=== PATIENT | female | born 1995 | race Caucasian/White ===

== ENCOUNTER 2016-04-18 14:10 | Emergency (ER) | payer BC ==
[2016-04-18 15:31] VITALS: BP 128/71
--- NOTE | 2016-04-18 15:42 | UC ---
General HPI - HPI Summary HPI Summary: complaint of rash that started yesterday started on her thighs and arms then today it has spread to her back and trunk rash is extremely itchy legs and arms are worse denies any new foods, soaps , detergents , medications took benadryl and calamine with some itching intermittent sore throat and headache for 5 days denies fever but has felt chills - History of Current Complaint Chief Complaint: [place] Stated Complaint: RASH Time Seen by Provider: 04/18/16 15:34 Hx Obtained From: Patient - Allergy/Home Medications Allergies/Adverse Reactions: Allergies Allergy/AdvReac Type Severity Reaction Status Date / Time Cefaclor [From [facility]] Allergy Airway Verified 04/18/16 15:31 Obstruction Home Medications: Home Medications Calamine LOTION* 1 applic .SEE ORDER DAILY PRN 04/18/16 [History Confirmed 04/18] Norgestimate-Ethinyl Estradiol [Sprintec 28 0.25-35 mg-Mcg] 1 tab PO DAILY 04/18 [History Confirmed 04/18/16] diPHENhydraMINE PO* [Benadryl PO 25 MG TAB*] 25 mg PO Q6H PRN 04/18/16 [History Confirmed 04/18/16] PMH/Surg Hx/FS Hx/Imm Hx Previously Healthy: Yes Respiratory History Of: Reports: Asthma - CHILDHOOD - Surgical History Surgical History: Yes Surgery Procedure, Year, and Place: EAR TUBES - Family History Known Family History: Positive: Diabetes - mother Negative: Cardiac Disease, Hypertension - Social History Occupation: Student Lives: With Family Alcohol Use: Occasionally Substance Use Type: None Smoking Status (MU): Never Smoked Tobacco Household Exposure Type: Cigarettes Review of Systems Constitutional: Negative Skin: Rash Eyes: Negative ENT: Sore Throat Respiratory: Negative Cardiovascular: Negative Gastrointestinal: Negative Genitourinary: Negative Motor: Negative Neurovascular: Negative Musculoskeletal: Negative Neurological: Negative Psychological: Negative All Other Systems Reviewed And Are Negative: Yes Physical Exam Triage Information Reviewed: Yes Appearance: No Pain Distress, Well-Nourished Vital Signs: Initial Vital Signs Pulse 74 04/18/16 15:25 Resp 18 04/18/16 15:25 BP 128/71 04/18/16 15:25 Pulse Ox 100 04/18/16 15:25 Vital Signs Reviewed: Yes Eyes: Positive: Conjunctiva Clear ENT: Positive: Pharyngeal erythema, TMs normal, Tonsillar swelling, Tonsillar exudate, Other: - tongue erythemaotus. Negative: TM bulging, TM red Dental: Positive: Cervical Lymphadenopathy Respiratory: Positive: Lungs clear, Normal breath sounds, No respiratory distress Cardiovascular: Positive: RRR, No Murmur, Pulses Normal Abdomen Description: Positive: Nontender, Soft Bowel Sounds: Positive: Present Musculoskeletal: Positive: No Edema Neurological: Positive: Alert Psychological Exam: Normal Skin: Positive: rashes - erythematous papular rash scattered on legs , arms and trunk Course/Dx - Course Course Of Treatment: exam completed. appears to be scarlet fever- enlarged tonsils, swollen lymph nodes,chills, lack of cough. will send throat culture- treat for strep d/t risk of not getting treatment - Differential Dx - Multi-Symptom Differential Diagnoses: Other - scarlet fever, mono, cintact dermatitis, cellulitis, hives Provider Diagnoses: strep infection Discharge - Discharge Plan Condition: Stable Disposition: HOME Prescriptions: Penicillin VK TAB 500 MG(NF) [Penicillin VK 500 mg Tab(NF)] 500 mg PO TID #30 tab Patient Education Materials: Scarlet Fever (ED), Strep Throat (ED) Referrals: Carmen Perry [Primary Care Provider] - Additional Instructions: Start antibiotic as directed Increase fluids and rest Take acetaminophen or ibuprofen for fever or pain Please review your discharge instructions. If your symptoms do not improve please call your primary care provider or return to urgent care
[2016-04-19 11:13] LABS: EBV Response NO
[2016-04-19 11:45] LABS: Manual Entry Verification HAN0055; Mono Internal Control QC Line Present
== END 2016-04-18 16:45 | disposition home or self-care (01) ==
LOC: UCCORT 14:10
DX: A49.1 Streptococcal infection, unspecified site (principal); R21 Rash and other nonspecific skin eruption; B27.90 Infectious mononucleosis, unspecified without complication; Z88.1 Allergy status to other antibiotic agents; Z77.22 Contact with and (suspected) exposure to environmental tobacco smoke (acute) (chronic)
CPT/HCPCS: 36415; 86308; 87070; 87651; 99202; G0463

== ENCOUNTER 2018-04-22 14:36 | Emergency (ER) | payer BC ==
[2018-04-22 15:11] VITALS: BP 114/78
--- NOTE | 2018-04-22 15:12 | UC ---
Ear Complaint HPI - HPI Summary HPI Summary: 23-year-old female presents with one-week history of bilateral intermittent ear pain. States pain worsens at times with chewing. Has taken ibuprofen with some relief. States she is also noted swollen lymph node to the right side of her neck. Denies fever, chills, tinnitus, vertigo, ear drainage, hearing loss, nasal congestion, runny nose, sore throat, or cough. - History of Current Complaint Stated Complaint: EAR PAIN Time Seen by Provider: 04/22/18 15:00 Hx Obtained From: Patient Hx Last Menstrual Period: 25 DAYS AGO - Allergies/Home Medications Allergies/Adverse Reactions: Allergies Allergy/AdvReac Type Severity Reaction Status Date / Time cefaclor [From [facility]] Allergy Airway Verified 04/22/18 15:08 Obstruction PMH/Surg Hx/FS Hx/Imm Hx Previously Healthy: Yes - Denies significant PMH - Surgical History Surgical History: Yes Surgery Procedure, Year, and Place: EAR TUBES - Family History Known Family History: Positive: Diabetes - mother - Social History Occupation: Employed Full-time Lives: With Family Alcohol Use: Occasionally Substance Use Type: None Smoking Status (MU): Never Smoked Tobacco Household Exposure Type: Cigarettes Review of Systems All Other Systems Reviewed And Are Negative: Yes Constitutional: Negative: Fever, Chills Skin: Negative: Rash Eyes: Negative: Drainage, Eye Redness ENT: Positive: Ear Ache. Negative: Sore Throat, Nasal Discharge, Sinus Congestion, Sinus Pain/Tenderness Respiratory: Negative: Shortness Of Breath, Cough Cardiovascular: Negative: Palpitations, Chest Pain Gastrointestinal: Negative: Abdominal Pain, Vomiting, Diarrhea, Nausea Genitourinary: Positive: Negative Musculoskeletal: Positive: Negative Neurological: Positive: Negative Is Patient Immunocompromised?: No Physical Exam - Summary Physical Exam Summary: GENERAL APPEARANCE: Well developed, well nourished, alert and cooperative, and appears to be in no acute distress. EYES: Conjunctiva clear. No drainage. Vision is grossly intact. EARS: External auditory canals and tympanic membranes clear, mild scarring, hearing grossly intact. NOSE: No nasal discharge. THROAT: Pharynx normal. No tonsilar inflammation, swelling, exudate, or lesions. Uvula midline. Oral cavity normal. Teeth and gingiva in good general condition. No TMJ tenderness. NECK: Neck supple. Single non-tender enlarged right tonsilar lymph node. CARDIAC: Normal S1 and S2. No S3, S4 or murmurs. Rhythm is regular. There is no peripheral edema, cyanosis or pallor. Extremities are warm and well perfused. Capillary refill is less than 2 seconds. Peripheral pulses intact. LUNGS: Clear to auscultation without rales, rhonchi, wheezing or diminished breath sounds. ABDOMEN: Positive bowel sounds. Soft, nondistended, nontender. No guarding or rebound. No masses or hepatosplenomegally. MUSKULOSKELETAL: ROM intact to all extremities. No joint erythema or tenderness. Normal muscular development. Normal gait. SKIN: Skin normal color, texture and turgor with no lesions or eruptions. Triage Information Reviewed: Yes Vital Signs Reviewed: Yes Ear Complaint Course/Dx - Course Course Of Treatment: 23-year-old female presents with one-week history of bilateral intermittent ear pain. States pain worsens at times with chewing. Has taken ibuprofen with some relief. States she is also noted swollen lymph node to the right side of her neck. Denies fever, chills, tinnitus, vertigo, ear drainage, hearing loss, nasal congestion, runny nose, sore throat, or cough. Afebrile. Vital signs stable. Exam reveals a young adult female in no acute distress with bilateral clear external auditory canals, bilateral TMs opaque with good cone of light with some minimal scarring noted, no pharyngeal erythema or tonsillar swelling, the right tonsillar lymph node is noted to be enlarged but nontender, and otherwise unremarkable exam. Recommending conservative treatment for viral eustachian tube dysfunction using fluticasone nasal spray 2 sprays each nostril once daily as well as watchful waiting of the tonsillar lymph node. She is to follow-up with her PCP in one week if symptoms do not improve. Anticipatory guidance and warning symptoms were reviewed with the patient. Verbalizes understanding and agrees with plan of care. - Differential Dx/Diagnosis Differential Diagnosis/HQI/PQRI: Otitis Externa, Otitis Media, Pharyngitis, TMJ Syndrome, URI Provider Diagnosis: Eustachian tube dysfunction, Enlarged lymph node in neck Discharge - Sign-Out/Discharge Documenting (check all that apply): Patient Departure All imaging exams completed and their final reports reviewed: No Studies - Discharge Plan Condition: Stable Disposition: HOME Prescriptions: Fluticasone NASAL SPRAY 50MCG* [Flonase NASAL SPRAY 50MCG*] 2 spray BOTH NARES DAILY #1 btl Patient Education Materials: Lymphadenopathy (ED), Serous Otitis Media (ED) Referrals: Leslie Camargo [employer] [employer] [Primary Care Provider] - 7 Days (If no improvement.) Additional Instructions: There was no evidence of an ear infection. I suspect that you may have a condition called eustachian tube dysfunction. Start fluticasone nasal spray 2 sprays each nostril once daily. You did have an enlarged lymph node of the neck. These typically will resolve on their own. Follow up with your primary care provider in 5-7 days if symptoms do not improve. Seek immediate medical attention in the emergency room if you have fever greater than 100.5 F, worsening pain, blood or drainage from the ear, loss of hearing, you are unable to swallow, have difficulty breathing or any worsening of symptoms. - Billing Disposition and Condition Condition: STABLE Disposition: Home
== END 2018-04-22 15:21 | disposition home or self-care (01) ==
LOC: UCCORT 14:36
DX: H69.83 Other specified disorders of Eustachian tube, bilateral (principal); R59.0 Localized enlarged lymph nodes; Z88.1 Allergy status to other antibiotic agents
CPT/HCPCS: 99212; G0463